=== PATIENT | female | born 1960 | race Caucasian/White ===

== ENCOUNTER 2021-07-25 11:11 | Emergency (ER) | payer OTHER, MEDICARE ==
[2021-07-25] MEDS ORDERED: Bacitracin 1 PK ONE (12:19)
== END 2021-07-25 14:08 | disposition home or self-care (01) ==
LOC: ERS 11:11
DX: S30.0XXA Contusion of lower back and pelvis, initial encounter (principal); S50.01XA Contusion of right elbow, initial encounter; S80.01XA Contusion of right knee, initial encounter; I10 Essential (primary) hypertension; E03.9 Hypothyroidism, unspecified; W01.0XXA Fall on same level from slipping, tripping and stumbling without subsequent striking against object, initial encounter; Y92.512 Supermarket, store or market as the place of occurrence of the external cause
CPT/HCPCS: 70450; 72131